=== PATIENT | female | born 1990 | race Caucasian/White ===

== ENCOUNTER 2017-12-01 09:35 | Emergency (ER) | payer SELFPAY ==
[2017-12-01] MEDS ORDERED: Naproxen 500 MG TAB ONE (10:21)
[2017-12-01] MEDS ORDERED: diphenhydrAMINE 25 MG CAP ONE (10:21)
[2017-12-01] MEDS ORDERED: Acetaminophen/Codeine 30-300mg Tablet ONE (10:26)
== END 2017-12-01 10:30 | disposition home or self-care (01) ==
LOC: MADERS 09:35
DX: T78.40XA Allergy, unspecified, initial encounter (principal)
CPT/HCPCS: 99283

== ENCOUNTER 2018-03-19 10:12 | Outpatient (CLI) | payer OTHER ==
--- NOTE | 2018-03-19 11:19 | RAD ---
RADIOGRAPH CERVICAL SPINE 4 VIEWS: DATE: 03-19-18 HISTORY: 27-year-old female with left upper extremity weakness for 6 years (cervical radiculopathy). COMPARISON: None. TECHNIQUE: AP, lateral, open mouth and swimmer's views. FINDINGS: The levels below C6-7 are obscured by the shoulders on the lateral view. There is normal alignment fr om C1-2 through C7-T1 as demonstrated on the swimmer's view. There is mild disc space narrowing at C2 -3 with slight degenerative retrolisthesis of C2 on C3. No bony central spinal canal stenosis identif ied. Vertebral body heights are maintained. No prevertebral soft tissue swelling. IMPRESSION: 1. Mild degenerative disc changes at C2-3. 2. Otherwise negative. 3. For cervical radiculopathy, the generalized recommendation is noncontrast MRI of the cervical spin e. JN POS: [facility]
== END 2018-03-19 10:13 | disposition home or self-care (01) ==
LOC: MADRAD 10:12
PROVIDERS: ATTEND Family Medicine
DX: M62.81 Muscle weakness (generalized) (principal); M50.11 Cervical disc disorder with radiculopathy, high cervical region
CPT/HCPCS: 72040

== ENCOUNTER 2018-05-15 09:28 | Outpatient (CLI) | payer OTHER ==
[2018-05-15 17:25] LABS: Hemoglobin A1c 6.4 % (4.0-6.0)
== END 2018-05-15 09:29 | disposition home or self-care (01) ==
LOC: MADLABBHPM 09:28
PROVIDERS: ATTEND Family Medicine
DX: N92.6 Irregular menstruation, unspecified (principal); E11.9 Type 2 diabetes mellitus without complications
CPT/HCPCS: 36415; 83036; 84702

== ENCOUNTER 2018-06-30 10:53 | Emergency (ER) | payer OTHER ==
[2018-06-30 11:25] LABS: Bilirubin Negative (Negative); Blood, Urine Small (Negative); Clarity Clear (Clear); Glucose, Urine (Dipstick) Negative (Negative); Leukocyte Negative (Negative); Nitrite Negative (Negative); Protein, Urine (Dipstick) Negative (Neg-Trace)
[2018-06-30 11:26] LABS: Pregnancy Test - Urine (BHCG) Negative (Negative); Pregu Control Background? CLEAR/WHITE (CLR/WHITE); Pregu Control Bar Appear? YES (CONTROL BAR)
[2018-06-30 11:36] LABS: Amphetamine Not Detected (NotDetected); Barbiturates Screen Not Detected (NotDetected); Benzodiazepine Screen Not Detected (NotDetected); Cocaine Metabolite Screen Not Detected (NotDetected); Medtox Control Line Valid? VALID (VALID); Methadone Not Detected (NotDetected); Methamphetamine Not Detected (NotDetected); Opiate Screen Not Detected (NotDetected); Oxycodone Screen Not Detected (NotDetected); Phencyclidine (PCP) Not Detected (NotDetected); THC/Cannabinoid Screen Not Detected (NotDetected); Tricyclic Screen Not Detected (NotDetected)
--- NOTE | 2018-06-30 11:39 | RAD ---
TWO VIEWS CHEST: HISTORY: Chest pain. FINDINGS: PA and lateral views of the chest are obtained. The lungs are well aerated. NO evidence of active i ntrathoracic disease is seen. No evidence of effusions, pneumonia, or pneumothorax is seen. IMPRESSION: Unremarkable 2 views chest. POS: [facility]
[2018-06-30 11:43] LABS: Bacteria/HPF Rare-Few HPF (None Seen); RBC/HPF 0-3 HPF (0-3); WBC/HPF 0-3 HPF (0-3)
[2018-06-30 11:43] LABS: #Basophils 0.1 thou/uL (0.0-0.2); #Eosinphils 0.1 thou/uL (0.0-0.7); #Lymphocytes 2.8 thou/uL (1.20-3.40); #Monocytes 0.7 thou/uL (0.11-0.59); #Neutrophils 8.5 thou/uL (1.40-6.50); %Basophils 0.7 % (0.0-1.0); %Eosinophils 0.7 % (0.0-10.0); %Lymphocytes 23.3 % (21.0-51.0); %Neutrophils 69.3 % (42.0-75.0); Hemoglobin 12.3 g/dL (12.0-16.0); Mean Corpuscular HGB CONC 32.1 g/dL (32.0-36.0); Mean Corpuscular Hemoglobin 25.3 pg (27.0-31.0); Mean Corpuscular Volume 78.7 fL (78.0-98.0); Mean Platelet Volume 7.9 fL (7.4-10.4); Platelet Count 402 thou/uL (130-400); RBC Distribution Width 13.8 % (11.5-14.5); Red Blood Cell (RBC) Count 4.88 mill/uL (4.20-5.40); White Blood Cell (WBC) Count 12.2 thou/uL (4.8-10.8)
[2018-06-30 11:57] LABS: ALT (SGPT) 15 U/L (8-55); AST (SGOT) 12 U/L (5-34); Albumin 3.8 g/dL (3.5-5.0); Alkaline Phosphatase 91 U/L (40-150); Anion Gap 13 mmol/L (10-20); BUN (Urea Nitrogen) 10 mg/dL (7.0-18.7); Bilirubin, Total 0.6 mg/dL (0.2-1.2); Calc. Creatinine Clearance 0 mL/min (70-130); Calcium 8.9 mg/dL (7.8-10.44); Carbon Dioxide 23 mmol/L (22-29); Chloride 106 mmol/L (98-107); Estimated GFR-MDRD 90; Globulin 3.2 g/dL (2.4-3.5); Glucose 168 mg/dL (70-105); Potassium 3.9 mmol/L (3.5-5.1); Sodium 138 mmol/L (136-145)
== END 2018-06-30 12:03 | disposition home or self-care (01) ==
LOC: MADERS 10:53
DX: M94.0 Chondrocostal junction syndrome [Tietze] (principal); J06.9 Acute upper respiratory infection, unspecified; E11.9 Type 2 diabetes mellitus without complications; Z79.84 Long term (current) use of oral hypoglycemic drugs; Z79.899 Other long term (current) drug therapy
CPT/HCPCS: 36415; 71046; 80053; 80306; 81003; 81015; 81025; 84484; 85025; 93005; 94760

== ENCOUNTER 2018-09-16 08:35 | Emergency (ER) | payer OTHER ==
[2018-09-16] MEDS ORDERED: HYDROcodone/Acetaminophen 5/325 mg Tablet ONE (09:39)
[2018-09-16] MEDS ORDERED: Ibuprofen 800 MG TAB ONE (09:39)
== END 2018-09-16 09:42 | disposition home or self-care (01) ==
LOC: MADERS 08:35
DX: N75.0 Cyst of Bartholin's gland (principal); E11.9 Type 2 diabetes mellitus without complications; Z79.84 Long term (current) use of oral hypoglycemic drugs
CPT/HCPCS: 99282

== ENCOUNTER 2020-10-30 13:13 | Emergency (ER) | payer OTHER, SELFPAY ==
[~2020-10-30 13:13] MED LIST: Sodium Chloride 0.9% 1,000 ML BAG ONE
[2020-10-30 13:55] LABS: #Basophils 0.1 thou/uL (0.0-0.2); #Eosinphils 0.1 thou/uL (0.0-0.7); #Lymphocytes 2.4 thou/uL (1.20-3.40); #Monocytes 0.6 thou/uL (0.11-0.59); #Neutrophils 6.5 thou/uL (1.40-6.50); %Basophils 0.7 % (0.0-1.0); %Eosinophils 1.1 % (0.0-10.0); %Lymphocytes 24.9 % (21.0-51.0); %Monocytes 5.8 % (0.0-10.0); %Neutrophils 67.4 % (42.0-75.0); Hemoglobin 12.8 g/dL (12.0-16.0); Mean Corpuscular HGB CONC 30.8 g/dL (32.0-36.0); Mean Corpuscular Hemoglobin 25.5 pg (27.0-31.0); Mean Corpuscular Volume 82.9 fL (78.0-98.0); Mean Platelet Volume 9.9 fL (7.4-10.4); Platelet Count 374 thou/uL (130-400); RBC Distribution Width 13.7 % (11.5-14.5); White Blood Cell (WBC) Count 9.6 thou/uL (4.8-10.8)
[2020-10-30 14:12] LABS: ALT (SGPT) 21 U/L (8-55); AST (SGOT) 25 U/L (5-34); Alkaline Phosphatase 122 U/L (40-110); Anion Gap 16 mmol/L (10-20); BUN (Urea Nitrogen) 10 mg/dL (7.0-18.7); Bilirubin, Total 0.3 mg/dL (0.2-1.2); Calc. Creatinine Clearance 0 mL/min (70-130); Calcium 8.9 mg/dL (7.8-10.44); Carbon Dioxide 22 mmol/L (22-29); Chloride 103 mmol/L (98-107); Glucose 359 mg/dL (70-105); Potassium 4.1 mmol/L (3.5-5.1); Sodium 137 mmol/L (136-145)
[2020-10-30 15:07] LABS: Bilirubin Negative (Negative); Blood, Urine Trace (Negative); Clarity Clear (Clear); Glucose, Urine (Dipstick) 500 mg/dL (Negative); Ketone, Urine Negative (Negative); Leukocyte Negative (Negative); Nitrite Negative (Negative); Protein, Urine (Dipstick) Negative (Neg-Trace)
[2020-10-30 15:14] LABS: RBC/HPF 0-3 HPF (0-3); Squamous Epithelial 0-3 HPF (0-3); WBC/HPF None Seen HPF (0-3); Yeast-Budding Rare HPF (None Seen)
== END 2020-10-30 15:40 | disposition home or self-care (01) ==
LOC: MADERS 13:13
DX: E11.65 Type 2 diabetes mellitus with hyperglycemia (principal); F41.9 Anxiety disorder, unspecified; Z79.84 Long term (current) use of oral hypoglycemic drugs
CPT/HCPCS: 36416; 80053; 81003; 81015; 84484; 85025; 99284; J7050

== ENCOUNTER 2021-12-01 13:12 | Emergency (ER) | payer MEDICAID, SELFPAY ==
[2021-12-01 14:33] LABS: Pregnancy Test - Urine (BHCG) POSITIVE (Negative)
[2021-12-01 14:34] LABS: Bilirubin Negative (Negative); Blood, Urine Small (Negative); Glucose, Urine (Dipstick) >=1000 mg/dL (Negative); Ketone, Urine 40 mg/dL (Negative); Leukocyte Negative (Negative); Nitrite Negative (Negative); Pregu Control Background? CLEAR/WHITE (CLR/WHITE); Pregu Control Bar Appear? YES (CONTROL BAR); Protein, Urine (Dipstick) Negative (Neg-Trace); Specific Gravity 1.025 (1.002-1.036); Specific Gravity, Urine 1.025 (1.005-1.030); Urobilinogen 0.2 mg/dL (Less than 2)
[2021-12-01 14:55] LABS: Bacteria/HPF 1+ HPF (None Seen); Clarity Hazy (Clear); Squamous Epithelial 0-3 HPF (0-3); Yeast-Budding 1+ HPF (None Seen)
== END 2021-12-01 15:05 | disposition left against medical advice (07) ==
LOC: MADERS 13:12
DX: O24.311 Unspecified pre-existing diabetes mellitus in pregnancy, first trimester (principal); E11.65 Type 2 diabetes mellitus with hyperglycemia; O99.411 Diseases of the circulatory system complicating pregnancy, first trimester; R03.0 Elevated blood-pressure reading, without diagnosis of hypertension; O99.281 Endocrine, nutritional and metabolic diseases complicating pregnancy, first trimester; E28.2 Polycystic ovarian syndrome; Z3A.01 Less than 8 weeks gestation of pregnancy
CPT/HCPCS: 36416; 80053; 81003; 81015; 81025; 85025; 99284; J7120

== ENCOUNTER 2021-12-01 17:12 | Emergency (ER) | payer MEDICAID ==
[2021-12-01] MEDS ORDERED: Lactated Ringer's 1,000 ML ONE (18:24)
[2021-12-01 18:56] LABS: #Basophils 0.1 thou/uL (0.0-0.2); #Eosinphils 0.1 thou/uL (0.0-0.7); #Lymphocytes 3.2 thou/uL (1.20-3.40); #Monocytes 0.8 thou/uL (0.11-0.59); #Neutrophils 8.3 thou/uL (1.40-6.50); %Basophils 1.1 % (0.0-1.0); %Eosinophils 1.2 % (0.0-10.0); %Lymphocytes 25.4 % (21.0-51.0); %Monocytes 6.1 % (0.0-10.0); %Neutrophils 66.2 % (42.0-75.0); Hemoglobin 13.1 g/dL (12.0-16.0); Mean Corpuscular HGB CONC 30.7 g/dL (32.0-36.0); Mean Corpuscular Hemoglobin 25.2 pg (27.0-31.0); Mean Corpuscular Volume 82.1 fL (78.0-98.0); Mean Platelet Volume 9.6 fL (7.4-10.4); Platelet Count 323 thou/uL (130-400); RBC Distribution Width 13.2 % (11.5-14.5); Red Blood Cell (RBC) Count 5.18 mill/uL (4.20-5.40); White Blood Cell (WBC) Count 12.5 thou/uL (4.8-10.8)
[2021-12-01 19:15] LABS: ALT (SGPT) 17 U/L (8-55); AST (SGOT) 18 U/L (5-34); Albumin 3.9 g/dL (3.5-5.0); Alkaline Phosphatase 75 U/L (40-110); Anion Gap 15 mmol/L (10-20); BUN (Urea Nitrogen) 7 mg/dL (7.0-18.7); Bilirubin, Total 0.5 mg/dL (0.2-1.2); Calc. Creatinine Clearance 0 mL/min (70-130); Calcium 9.1 mg/dL (7.8-10.44); Carbon Dioxide 24 mmol/L (22-29); Chloride 103 mmol/L (98-107); Glucose 202 mg/dL (70-105); Potassium 3.6 mmol/L (3.5-5.1); Protein, Total 6.9 g/dL (6.0-8.3); Sodium 138 mmol/L (136-145)
== END 2021-12-01 20:07 | disposition home or self-care (01) ==
LOC: MADERS 17:12
DX: O24.111 Pre-existing type 2 diabetes mellitus, in pregnancy, first trimester (principal); E11.65 Type 2 diabetes mellitus with hyperglycemia; O13.1 Gestational [pregnancy-induced] hypertension without significant proteinuria, first trimester; O99.281 Endocrine, nutritional and metabolic diseases complicating pregnancy, first trimester; E28.2 Polycystic ovarian syndrome; Z3A.01 Less than 8 weeks gestation of pregnancy
CPT/HCPCS: 80053; 85025; J7120

== ENCOUNTER 2023-07-12 14:19 | Emergency (ER) | payer OTHER | END 2023-07-12 15:53 | disposition home or self-care (01) | LOC: MADERS 14:19 | DX: J11.1 Influenza due to unidentified influenza virus with other respiratory manifestations (principal); E11.9 Type 2 diabetes mellitus without complications; Z79.4 Long term (current) use of insulin | CPT/HCPCS: 87081; 87430; 87804; 99283 ==